=== PATIENT | female | born 1990 | race Two or more races ===

== ENCOUNTER 2016-11-28 20:07 | Outpatient (CLI) | payer OTHER ==
[2016-11-28 20:37] VITALS: BMI 27.4
[2016-11-28 20:56] LABS: URINE BILIRUBIN NEGATIVE (NEGATIVE); URINE BLOOD NEGATIVE (NEGATIVE); URINE GLUCOSE (UA) NEGATIVE (NEGATIVE); URINE LEUKOCYTE ESTERASE NEGATIVE (NEGATIVE); URINE NITRITE NEGATIVE (NEGATIVE); URINE PROTEIN NEGATIVE (NEGATIVE); URINE UROBILINOGEN NORMAL (0-1 mg/dl)
[2016-11-28 20:59] LABS: URINE APPEARANCE CLEAR; URINE COLOR LIGHT YELLOW
== END 2016-11-28 21:42 | disposition home or self-care (01) ==
LOC: FBCOUT 20:07 → FBC 20:07 → FBCOUT 21:42
PROVIDERS: ATTEND Family Medicine
DX: Z34.83 Encounter for supervision of other normal pregnancy, third trimester (principal); Z3A.28 28 weeks gestation of pregnancy
CPT/HCPCS: 81003; 59050; G0463